=== PATIENT | female | born 1995 | race Caucasian/White ===

== ENCOUNTER 2020-11-01 13:03 | Emergency (ER) | payer OTHER ==
[~2020-11-01] VITALS: Ht 167.6 cm; Wt 56.8 kg
[2020-11-01] MEDS ORDERED: ALBU8HFA PO (14:11)
[2020-11-01 14:35] VITALS: BP 113/91
--- NOTE | 2020-11-01 14:46 | NUR ---
Phone number [phone], director lexa Giraldo to disclose personal information over the phone per pt
== END 2020-11-01 14:51 | disposition home or self-care (01) ==
LOC: ER 13:03
DX: R06.02 Shortness of breath (principal); Z20.822 Contact with and (suspected) exposure to COVID-19; Z79.899 Other long term (current) drug therapy
CPT/HCPCS: 87635; 99283; C9803